=== PATIENT | female | born 1985 | race African-American/Black ===

== ENCOUNTER 2020-11-05 00:02 | Emergency (ER) | payer OTHER ==
[~2020-11-05] VITALS: Ht 160 cm; Wt 101.2 kg
[~2020-11-05 00:02] MED LIST: COLACE100 MG PO; PROTONIX40 MG PO; ZOFRAN ODT4 M1 PO
[2020-11-05] MEDS ORDERED: IBUPROFEN100 MG/52 PO (00:55)
[2020-11-05] MEDS ORDERED: APAP/CODEINE ELI5 M1 PO (00:55)
[2020-11-05 01:59] VITALS: BP 126/85
== END 2020-11-05 02:04 | disposition home or self-care (01) ==
LOC: ER 00:02
DX: M25.562 Pain in left knee (principal); F17.210 Nicotine dependence, cigarettes, uncomplicated; Z79.899 Other long term (current) drug therapy; Z91.018 Allergy to other foods; Z91.040 Latex allergy status; Z88.8 Allergy status to other drugs, medicaments and biological substances

== ENCOUNTER 2021-01-10 23:07 | Emergency (ER) | payer OTHER ==
[~2021-01-10] VITALS: Ht 160 cm; Wt 103.0 kg
[~2021-01-10 23:07] MED LIST changes: +APAP/CODEINE ELI5 M1 PO; +IBUPROFEN100 MG/52 PO
[2021-01-10 23:13] VITALS: BP 120/86
[2021-01-11] MEDS ORDERED: MECLIZINE HCL25 MG PO (00:13)
[2021-01-11] MEDS ORDERED: FLONASE 0.05%50 MCG NARES (00:13)
== END 2021-01-11 00:22 | disposition home or self-care (01) ==
LOC: ER 23:07
DX: J32.9 Chronic sinusitis, unspecified (principal); H61.21 Impacted cerumen, right ear; R42 Dizziness and giddiness; F17.210 Nicotine dependence, cigarettes, uncomplicated; Z98.890 Other specified postprocedural states; Z91.018 Allergy to other foods; Z91.040 Latex allergy status

== ENCOUNTER 2021-03-22 15:18 | Emergency (ER) | payer OTHER ==
[~2021-03-22] VITALS: Ht 160 cm; Wt 108.9 kg
[~2021-03-22 15:18] MED LIST changes: +FLONASE 0.05%50 MCG NARES; +MECLIZINE HCL25 MG PO
[2021-03-22 15:51] LABS: ABSOLUTE NEUTROPHILS 6.3 thou/uL (1.4-8.2); BASOPHILS 0.6 % (0.0-2.0); EOSINOPHILS 0.8 % (0.0-3.0); HEMATOCRIT 39.3 % (37.0-47.0); HEMOGLOBIN 13.7 gm/dL (12.0-15.0); LYMPHOCYTES 25.5 % (24.0-44.0); MCH 28.9 pg (26.0-34.0); MCHC 34.9 g/dL (28.0-37.0); MCV 82.7 fL (80.0-100.0); MONOCYTES 8.4 % (1.0-8.0); PLATELET COUNT 256 thou/uL (150-400); POLYS 64.7 % (36.0-66.0); RBC 4.75 mil/uL (4.20-5.00); WBC 9.7 thou/uL (4.0-11.0)
[2021-03-22 15:52] LABS: URINE BILIRUBIN NEGATIVE (Negative); URINE BLOOD 3+ (Negative); URINE CLARITY SL CLOUDY; URINE COLOR YELLOW; URINE GLUCOSE-RANDOM* NEGATIVE (Negative); URINE KETONES NEGATIVE (Negative); URINE LEUKOCYTES-REFLEX TRACE (Negative); URINE NITRITE-REFLEX NEGATIVE (Negative); URINE PROTEIN (DIPSTICK) TRACE (Negative); URINE UROBILINOGEN 0.2 E.U./dl (0.2-1.0)
[2021-03-22 16:07] LABS: SQUAMOUS 4-10 Moderate /LPF (0-3); URINE RBC >20 Many /HPF (NONE SEEN)
[2021-03-22 16:08] LABS: CALCIUM 9.1 mg/dL (8.5-10.1); CREATININE 1.2 mg/dL (0.6-1.0); POTASSIUM 4.4 mmol/L (3.5-5.1)
[2021-03-22 16:09] LABS: BACTERIA-REFLEX None Seen /HPF (None Seen); CASTS None Seen /LPF (None Seen); CRYSTALS None Seen /LPF (None Seen); URINE WBC-REFLEX 0-5 Rare /HPF (0-5)
[2021-03-22 16:13] LABS: ALBUMIN 3.5 g/dL (3.4-5.0); TOTAL BILIRUBIN 0.3 mg/dL (0.2-1.0); TOTAL PROTEIN 7.9 g/dL (6.4-8.2)
[2021-03-22 17:49] VITALS: BP 124/84
[2021-03-22] MEDS ORDERED: FLAGYL500 M1 PO (17:52)
== END 2021-03-22 17:49 | disposition home or self-care (01) ==
LOC: ER 15:18
PROVIDERS: Emergency Medicine
DX: N93.9 Abnormal uterine and vaginal bleeding, unspecified (principal); F17.210 Nicotine dependence, cigarettes, uncomplicated; Z98.51 Tubal ligation status; Z88.1 Allergy status to other antibiotic agents; Z91.02 Food additives allergy status; Z91.040 Latex allergy status; Z98.890 Other specified postprocedural states

== ENCOUNTER 2021-04-20 21:33 | Emergency (ER) | payer OTHER ==
[~2021-04-20] VITALS: Ht 160 cm; Wt 112.0 kg
[~2021-04-20 21:33] MED LIST changes: +FLAGYL500 M1 PO
[2021-04-20 21:43] VITALS: BP 116/78
[2021-04-20 22:40] LABS: HEMOGLOBIN 13.5 gm/dL (12.0-15.0); MCH 28.2 pg (26.0-34.0); MCHC 33.7 g/dL (28.0-37.0); MCV 83.5 fL (80.0-100.0); RBC 4.79 mil/uL (4.20-5.00); RDW 14.3 % (10.5-14.5); WBC 8.9 thou/uL (4.0-11.0)
[2021-04-20 22:49] LABS: CALCIUM 8.8 mg/dL (8.5-10.1); CREATININE 1.3 mg/dL (0.6-1.0); POTASSIUM 4.3 mmol/L (3.5-5.1)
[2021-04-20] MEDS ORDERED: NAPROSYN500 MG PO (22:49)
[2021-04-20] MEDS ORDERED: FLEXERIL PO (22:49)
[2021-04-20] MEDS ORDERED: MEDROLDOSEPACK PO (22:49)
--- NOTE | 2021-04-21 08:41 | EKG ---
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 04/21/21 0841 2214 2214 Casey Chadwick MD, FAC /EPI
== END 2021-04-20 23:06 | disposition home or self-care (01) ==
LOC: ER 21:33
PROVIDERS: Physician Assistant
DX: M79.602 Pain in left arm (principal); F17.210 Nicotine dependence, cigarettes, uncomplicated; Z98.51 Tubal ligation status; Z91.02 Food additives allergy status; Z91.040 Latex allergy status; Z88.8 Allergy status to other drugs, medicaments and biological substances; Z91.018 Allergy to other foods

== ENCOUNTER 2021-05-03 09:31 | Emergency (ER) | payer OTHER ==
[~2021-05-03] VITALS: Ht 160 cm; Wt 112.0 kg
[~2021-05-03 09:31] MED LIST changes: +FLEXERIL PO; +MEDROLDOSEPACK PO; +NAPROSYN500 MG PO
[2021-05-03 09:43] VITALS: BP 127/87
== END 2021-05-03 11:05 | disposition home or self-care (01) ==
LOC: ER 09:31
DX: G43.909 Migraine, unspecified, not intractable, without status migrainosus (principal); Z53.21 Procedure and treatment not carried out due to patient leaving prior to being seen by health care provider; Z98.890 Other specified postprocedural states; Z91.09 Other allergy status, other than to drugs and biological substances; Z91.040 Latex allergy status